=== PATIENT | female | born 1945 | race Caucasian/White ===

== ENCOUNTER → 2017-06-19 | Outpatient (CLI) | payer MEDICARE ==
[~2017-06-19] MED LIST: ATIVAN GENERIC 11 MG PO; BYSTOLIC5 MG PO; CIPRO 500MG TA500 MG PO; EFFEXOR25 MG PO; FLAGYL500 MG PO; HYDROXYZINE 25M25 MG PO; LAMICTAL200 MG PO; LEVAQUIN500 MG PO; LEVOTHYROXIN0.025 M2 PO; LEVOTHYROXIN0.025 M3 PO; LEVOTHYROXIN0.075 M1 PO; LEVOTHYROXINE0.05 MG PO; LORAZEPAM1 MG/TABLE PO; MECLIZINE12.5 MG PO; METOPROLOL SUC100 M2 PO; NEXIUM40 MG PO; PANTOPRAZOLE SO40 M1 PO; PREDNISONE20 MG PO; PREMPRO 0.45 MG1 TAB PO; PRESERVISION1 SGL PO; ROXICET 325 MG-1 TAB PO; TOPROL XL25 MG PO; VENLAFAXINE HCL75 M1 PO; ZOLPIDEM 10MG T10 MG PO
--- NOTE | 2017-06-23 14:56 | RADIOLOGY REPORT PS360 ---
DIG MAMM-SCREEN [facility]IA W/CAD CAD Screening ORDERING PHYSICIAN : MAINOR GARCÍA APRN PATIENT AGE: 71 years GENDER: Female COMPARISON: Previous mammograms: May and 2010 film screen mammogram March 2009 as well as 2009 study used for comparison INDICATION: Routine screening no hormones. No new complaints . Previous benign stereotactic biopsy left breast Noncontributory family history TECHNIQUE: Standard CC and MLO images were obtained. R2 CAD reviewed. FINDINGS: Again see the asymmetric glandular pattern. Stable asymmetry with the more pronounced denser Bladder elements at the left retroareolar region most evident extending superior and lateral from this retroareolar area on left. This feature is unchanged since prior studies dating back to 2008 LEFT BREAST: There is been a previously detected biopsy at superior left breast metallic marker clip seen. RIGHT BREAST:. No significant new findings. Stable breast tissue most evident at the retroareolar region. . IMPRESSION: No significant new findings. Stable Moderate asymmetry as discussed above, unchanged since studies dating back to 2008 BI-RADS CATEGORY: 2_Benign RECOMMENDED FOLLOWUP: 12M 12 MONTH FOLLOW-UP (A letter has been sent to the patient regarding results of the study.)
== END ==
LOC: RAD 08:42
DX: Z12.31 Encounter for screening mammogram for malignant neoplasm of breast (principal)
CPT/HCPCS: G0202